=== PATIENT | male | born 1930 | race Caucasian/White ===

== ENCOUNTER 2016-03-14 10:29 | Emergency (ER) | payer MEDICARE, BC ==
[~2016-03-14] VITALS: Ht 172.7 cm; Wt 64.1 kg
[2016-03-14 10:31] VITALS: BP 142/85; PULSE 61; RESP 18; TEMP 97.3; O2SAT 97
--- NOTE | 2016-03-14 11:10 | PD ---
HPI Chief Complaint: Laceration/Skin Injury Time Seen by Provider: 10:59 Travel History International Travel<30 days: No Contact w/Intl Traveler<30days: No Traveled to known affect area: No History of Present Illness HPI This patient tripped and fell while walking his dog last night. He landed on his left side and got skin tears to his left elbow and left knee. Did not strike his head. Symptoms at this time are minor but he wanted his skin tears addressed. PFSH Past Medical History Diminished Hearing: Yes Immunizations Current: Yes Social History Alcohol Use: Yes (1 drink a day) Tobacco Use: No Substance Use: No Allergies-Medications (Allergen,Severity, Reaction): Coded Allergies: No Known Allergies (Verified , 03/14/16) Reported Meds & Prescriptions Reported Meds & Active Scripts Active No Active Prescriptions or Reported Medications Review of Systems General / Constitutional: No: Fever HENT: No: Headaches Cardiovascular: No: Chest Pain or Discomfort Physical Exam Narrative SKIN: Inspection shows no rash or ulcers. Palpation shows no induration or nodules. He has minor skin tear to the left elbow and left knee No long bone tenderness and good range of motion of joints Psych: Normal mood and affect. Normal insight and judgment. Data Data Last Documented VS Vital Signs Date Time Temp Pulse Resp B/P Pulse Ox O2 Delivery O2 Flow Rate FiO2 03/14/16 10:31 97.3 61 18 142/85 97 MDM Medical Decision Making Medical Screen Exam Complete: Yes Emergency Medical Condition: Yes Medical Record Reviewed: Yes Differential Diagnosis skin tear,laceration,contusion Narrative Course wound care to the skin tears was done, cleaned and dressed. wound care instructions given Diagnosis Primary Impression: Skin tear of left upper extremity Additional Impression: Skin tear of left lower leg without complication Qualified Code: S81.802A - Skin tear of left lower leg without complication, initial encounter Additional Instructions: The patient was advised to follow up with their physician and return if they worsen. Med/Other Pt SpecificInfo: Other Scripts No Active Prescriptions or Reported Meds Disposition: 01 DISCHARGE HOME Condition: Stable Tyson Galindo MD Mar 14, 2016 11:10
== END 2016-03-14 11:20 | disposition home or self-care (01) ==
LOC: PHEFT 10:29
DX: S51.012A Laceration without foreign body of left elbow, initial encounter (principal); S81.012A Laceration without foreign body, left knee, initial encounter; W01.0XXA Fall on same level from slipping, tripping and stumbling without subsequent striking against object, initial encounter; Y93.K1 Activity, walking an animal; Y92.9 Unspecified place or not applicable
CPT/HCPCS: 99283